=== PATIENT | female | born 1995 | race Caucasian/White ===

== ENCOUNTER 2020-12-30 11:18 | Emergency (ER) | payer OTHER ==
[~2020-12-30 11:18] MED LIST: IBUPROFEN800 MG PO; PRENATAL FORMU1 EACH PO
[2020-12-30 11:58] LABS: BILIRUBIN NEGATIVE (NEGATIVE); BLOOD NEGATIVE Ery/uL (NEGATIVE); CLARITY CLEAR (CLEAR); COLOR YELLOW (YELLOW); GLUCOSE (U) NORMAL (NORMAL); LEUKOCYTES NEGATIVE Leu/uL (NEGATIVE); NITRITE NEGATIVE (NEGATIVE); PROTEIN NEGATIVE (NEGATIVE); UROBILINOGEN 0.2 mg/dL (0.2-1.0)
[2020-12-30 12:03] LABS: BASOPHIL 0.3 % (0-2); EOSINOPHIL 0.7 % (0-5); HCT 35.9 % (37.0-47.0); HGB 11.8 g/dl (12.5-16.0); LYMPHOCYTE 15.9 % (15-48); MCH 32.5 pg (25.0-31.0); MCHC 32.9 g/dL (32.0-36.0); MCV 98.9 fL (78.0-100.0); MONOCYTE 6.4 % (0-12); MPV 9.6 fL (6.0-9.5); NEUTROPHIL 76.2 % (41-80); NRBC 0; PLT 306 K/uL (150-400); RBC 3.63 M/uL (4.20-5.40); RDW 13.2 % (11.5-14.0); WBC 14.6 K/uL (4.0-10.5)
[2020-12-30 12:20] LABS: ALBUMIN 3.5 g/dL (3.4-5.0); BILIRUBIN - TOTAL 0.4 mg/dL (0.2-1.0); BUN/CREAT RATIO (CALC) 14.8 RATIO; CREATININE 0.61 mg/dL (0.51-0.95); GLOBULIN (CALCULATION) 3.6 g/dL; POTASSIUM 3.3 mmol/L (3.5-5.1); TOTAL PROTEIN 7.1 g/dL (6.4-8.2)
== END 2020-12-30 15:00 | disposition home or self-care (01) ==
LOC: FER 11:18
PROVIDERS: Emergency Medicine
DX: O21.0 Mild hyperemesis gravidarum (principal); Z3A.18 18 weeks gestation of pregnancy
CPT/HCPCS: 36415; 80053; 81003; 83540; 83550; 84702; 85025; J2405; J7030

== ENCOUNTER 2021-05-23 08:54 | Inpatient (IN) | payer OTHER ==
[~2021-05-23] VITALS: Ht 160 cm; Wt 64.8 kg
[2021-05-23 12:36] LABS: HCT 31.3 % (37.0-47.0); HGB 10.3 g/dl (12.5-16.0); MCH 31.7 pg (25.0-31.0); MCHC 32.9 g/dL (32.0-36.0); MCV 96.3 fL (78.0-100.0); MPV 10.1 fL (6.0-9.5); RBC 3.25 M/uL (4.20-5.40); RDW 12.9 % (11.5-14.0); WBC 20.6 K/uL (4.0-10.5)
[2021-05-23 20:16] LABS: BASOPHIL 0.3 % (0-2); EOSINOPHIL 0.5 % (0-5); HGB 10.6 g/dl (12.5-16.0); MCH 31.9 pg (25.0-31.0); MCHC 33.1 g/dL (32.0-36.0); MCV 96.4 fL (78.0-100.0); MONOCYTE 8.4 % (0-12); MPV 9.5 fL (6.0-9.5); NEUTROPHIL 73.9 % (41-80); NRBC 0; PLT 350 K/uL (150-400); RBC 3.32 M/uL (4.20-5.40); RDW 12.9 % (11.5-14.0); WBC 23.1 K/uL (4.0-10.5)
[2021-05-23 20:21] LABS: BILIRUBIN NEGATIVE (NEGATIVE); BLOOD NEGATIVE Ery/uL (NEGATIVE); CLARITY CLEAR (CLEAR); COLOR YELLOW (YELLOW); GLUCOSE (U) NORMAL (NORMAL); LEUKOCYTES 1+ Leu/uL (NEGATIVE); NITRITE NEGATIVE (NEGATIVE); PROTEIN NEGATIVE (NEGATIVE); SPECIFIC GRAVITY 1.025 (1.001-1.030); pH 6.5 (5.0-9.0)
[2021-05-23 20:22] LABS: AMPHETAMINES NEGATIVE (NEGATIVE); BARBITURATES NEGATIVE (NEGATIVE); ECSTASY (MDMA) NEGATIVE (NEGATIVE); MARIJUANA (THC) NEGATIVE (NEGATIVE); METHADONE NEGATIVE (NEGATIVE); OPIATES NEGATIVE (NEGATIVE); OXYCODONE NEGATIVE (NEGATIVE)
[2021-05-23 20:28] LABS: AMORPHOUS URATES CRYSTALS MODERATE; BACTERIA 2+; MUCOUS LARGE; URINARY RBC RARE
[2021-05-25 05:52] LABS: HGB 9.1 g/dl (12.5-16.0); MCHC 32.5 g/dL (32.0-36.0); MCV 98.6 fL (78.0-100.0); MPV 9.7 fL (6.0-9.5); RBC 2.84 M/uL (4.20-5.40); RDW 12.8 % (11.5-14.0); WBC 19.9 K/uL (4.0-10.5)
--- NOTE | 2021-05-25 11:56 | NUR ---
BABY'S ACCOUNT [id number] XAVI SANDOVAL 05/24/21 MET WITH MOTHER DUE TO REFERRAL REGARDING POS THC SCREENS DURING . THE MOTHER WAS HOLDING THE INFANT WHEN I ARRIVED, SHE APPEARED TO BE BONDING WITH THE INFANT. MOTHER IS A 26 YEAR OLD. SHE IS TO TASHA SANDOVAL. SHE HAS HAD FIVE PREGNANCIES. SHE HAS ONE DAUGHTER, MARCIO, AGE 6. SHE HAS HAD 3 MISCARRAGIES AND NOW SHE HAS THIS NEW BABY. SHE AND HER RESIDE IN A 3 BEDROOM HOME WITH MODERN CONVIENCES. SHE ATTENDS COSMOTOLOGY SCHOOL AT [employer] AND HE IS EMPLOYED AT [employer] IN [place]. SHE WILL USE DR. GOODSON AT [facility] IN [place]. SHE USED DR. MCKEON AND AISSATOU DURING HER . PT. STATES THAT SHE ONLY USES TOBACCO AND THAT SHE ONLY USED MARIJUANA DUE TO NAUSEA AND THAT IT HELPED HER TO EAT. SHE WAS POSITIVE ON 10/28/20 AND 04/02/2021. THE INFANTS CORD BLOOD HAS BEEN SENT TO THE LAB FOR TESTING. THEY DO NOT RECIEVE FOOD STAMPS OR WIC. ADVISED THE MOTHER TO APPLY FOR WIC HER IS THE ONLY ONE WORKING AND THEY NOW HAVE FOUR IN THE FAMILY. ADVISED HER OF THE SERVICES [facility] THE HANDS PROGRAM. SHE IS UNSURE THAT SHE WANTS TO USE HANDS, BUT WILL DISCUSS WITH HER . SHE REPORTS THAT SHE HAS A GREAT FAMILY SUPPORT SYSTEM THROUGH HER PARENTS, GRANDPARENTS AND HER INLAWS. A REFERRAL WILL BE MADE TO THE [facility] OFFICE DUE TO HER POS THC TESTS.
== END 2021-05-26 10:20 | disposition home or self-care (01) | DRG 806 ==
LOC: FOB 08:54
PROVIDERS: Specialist; ADMIT Obstetrics & Gynecology
PROC: 10E0XZZ Delivery of Products of Conception, External Approach (ICD-10-PCS; principal; 2021-05-24)
DX: O42.02 Full-term premature rupture of membranes, onset of labor within 24 hours of rupture (principal); D62 Acute posthemorrhagic anemia; Z37.0 Single live birth; O99.02 Anemia complicating childbirth; Z20.822 Contact with and (suspected) exposure to COVID-19; Z3A.39 39 weeks gestation of pregnancy; O71.82 Other specified trauma to perineum and vulva; R82.5 Elevated urine levels of drugs, medicaments and biological substances; R87.612 Low grade squamous intraepithelial lesion on cytologic smear of cervix (LGSIL)
CPT/HCPCS: 36415; 80305; 81001; 85025; 90686; J0290; J1200; J2300; J2405; J7120; U0002

== ENCOUNTER 2022-06-30 01:05 | Inpatient (IN) | payer OTHER ==
[~2022-06-30] VITALS: Ht 160 cm; Wt 65.3 kg
[2022-06-30 02:06] LABS: HCT 30.8 % (37.0-47.0); HGB 10.2 g/dl (12.5-16.0); MCHC 33.1 g/dL (32.0-36.0); MCV 93.6 fL (78.0-100.0); RBC 3.29 M/uL (4.20-5.40); RDW 12.7 % (11.5-14.0)
[2022-06-30 02:07] LABS: BILIRUBIN NEGATIVE (NEGATIVE); BLOOD TRACE-INTACT Ery/uL (NEGATIVE); CLARITY CLEAR (CLEAR); COLOR YELLOW (YELLOW); GLUCOSE (U) NORMAL (NORMAL); LEUKOCYTES NEGATIVE Leu/uL (NEGATIVE); NITRITE NEGATIVE (NEGATIVE); PROTEIN NEGATIVE (NEGATIVE); SPECIFIC GRAVITY 1.015 (1.001-1.030)
[2022-06-30 02:33] LABS: GRANULAR CASTS MODERATE
[2022-06-30 02:35] LABS: BARBITURATES NEGATIVE (NEGATIVE); ECSTASY (MDMA) NEGATIVE (NEGATIVE); MARIJUANA (THC) NEGATIVE (NEGATIVE); METHADONE NEGATIVE (NEGATIVE); OPIATES NEGATIVE (NEGATIVE)
[2022-06-30 02:36] LABS: AMPHETAMINES NEGATIVE (NEGATIVE); OXYCODONE NEGATIVE (NEGATIVE)
[2022-07-01 08:46] LABS: HCT 28.9 % (37.0-47.0); HGB 9.3 g/dl (12.5-16.0); MCH 30.8 pg (25.0-31.0); MCHC 32.2 g/dL (32.0-36.0); MCV 95.7 fL (78.0-100.0); MPV 9.2 fL (6.0-9.5); RBC 3.02 M/uL (4.20-5.40); RDW 12.8 % (11.5-14.0); WBC 16.2 K/uL (4.0-10.5)
== END 2022-07-02 12:50 | disposition home or self-care (01) | DRG 806 ==
LOC: FOB 01:05
PROVIDERS: Obstetrics & Gynecology; ADMIT Specialist
PROC: 10D07Z6 Extraction of Products of Conception, Vacuum, Via Natural or Artificial Opening (ICD-10-PCS; principal; 2022-06-30)
PROC: 3E033VJ Introduction of Other Hormone into Peripheral Vein, Percutaneous Approach (ICD-10-PCS; 2022-06-30)
PROC: 10H07YZ Insertion of Other Device into Products of Conception, Via Natural or Artificial Opening (ICD-10-PCS; 2022-06-30)
PROC: 0HQ9XZZ Repair Perineum Skin, External Approach (ICD-10-PCS; 2022-06-30)
PROC: 3E0134Z Introduction of Serum, Toxoid and Vaccine into Subcutaneous Tissue, Percutaneous Approach (ICD-10-PCS; 2022-07-02)
DX: O99.02 Anemia complicating childbirth (principal); D62 Acute posthemorrhagic anemia; Z37.0 Single live birth; O10.92 Unspecified pre-existing hypertension complicating childbirth; O24.92 Unspecified diabetes mellitus in childbirth; Z3A.39 39 weeks gestation of pregnancy; Z23 Encounter for immunization; O99.334 Smoking (tobacco) complicating childbirth; F17.210 Nicotine dependence, cigarettes, uncomplicated; D50.9 Iron deficiency anemia, unspecified; Z20.822 Contact with and (suspected) exposure to COVID-19; O09.43 Supervision of pregnancy with grand multiparity, third trimester; O70.0 First degree perineal laceration during delivery
CPT/HCPCS: 36415; 80305; 81001; 84112; 86900; 86901; 90707; J0595; J2405; J2916; J7120; U0002